=== PATIENT | female | born 2000 | race African-American/Black ===

== ENCOUNTER 2022-09-15 10:20 | Emergency (ER) | payer OTHER ==
[2022-09-15 10:29] VITALS: BP 129/85; BMI 32.2
[2022-09-15] MEDS ORDERED: LACTATED RINGERS SOLUTION 1000 ML INFUS.BAG IV ONE (10:55)
[2022-09-15] MEDS ORDERED: FAMOTIDINE 20 MG/50 ML IVPB 20 MG/50 ML MG IVPB ONE ×2 (10:55→11:04)
[2022-09-15] MEDS ORDERED: MAG HYDROX/AL HYDROX/SIMETH 30 ML UNIT-DOSE CUP PO ONE (10:56)
[2022-09-15] MEDS ORDERED: MAG HYDROX/AL HYDROX/SIMETH 30 ML UNIT-DOSE CUP ONE (11:05)
[2022-09-15 11:26] LABS: HEMATOCRIT 40.5 % (32.4-45.2); HEMOGLOBIN 13.7 G/dL (10.7-15.3); MCH 29.7 pg (25.7-33.7); MCHC 33.7 g/dl (32.0-36.0); MEAN CELL VOLUME 88.1 fl (80-96); MEAN PLT VOLUME 9.3 fl (7.5-11.1); PLATELET COUNT 207.9 10^3/uL (134-434); RDW 14.8 % (11.6-15.6); WHITE BLOOD COUNT 6.9 10^3/uL (4.0-10.8)
[2022-09-15 11:35] LABS: ALBUMIN 4.3 g/dl (3.4-5.0); BILIRUBIN,TOTAL 0.5 mg/dl (0.2-1); BLOOD UREA NITROGEN 11.6 mg/dl (7-18); CALCIUM 8.8 mg/dl (8.5-10.1); CREATININE 0.8 mg/dl (0.6-1.3); POTASSIUM 3.5 mmol/L (3.5-5.1); SGPT/ALT 7.9 U/L (7-52); TOT PROT 7.2 g/dl (6.4-8.2)
[2022-09-15 11:38] LABS: EPITHELIAL CELLS FEW /hpf
[2022-09-15 12:22] LABS: PLATELET ESTIMATE ADEQUATE
[2022-09-15] MEDS ORDERED: WATER FOR INJ,STERILE 10 ML ONE (12:51)
[2022-09-15 13:21] VITALS: PULSE 86; RESP 18; TEMP 98.2
== END 2022-09-15 13:35 | disposition home or self-care (01) ==
LOC: FER 10:20
PROC: 3E033GC Introduction of Other Therapeutic Substance into Peripheral Vein, Percutaneous Approach (ICD-10-PCS; principal; 2022-09-15)
DX: R10.84 Generalized abdominal pain (principal); R19.7 Diarrhea, unspecified
CPT/HCPCS: 36415; 80053; 81003; 81015; 83690; 84703; 85027; 99284-25

== ENCOUNTER 2023-02-26 18:34 | Emergency (ER) | payer OTHER ==
[2023-02-26 19:01] VITALS: BP 114/62; PULSE 74; RESP 16; TEMP 98.3; BMI 31.1
[2023-02-26 20:19] LABS: HEMATOCRIT 40.2 % (32.4-45.2); HEMOGLOBIN 12.7 G/dL (10.7-15.3); MCH 27.7 pg (25.7-33.7); MCHC 31.6 g/dl (32.0-36.0); MEAN CELL VOLUME 87.8 fl (80-96); MEAN PLT VOLUME 9.3 fl (7.5-11.1); PLATELET COUNT 234.8 10^3/uL (134-434); RBC 4.58 10^6/uL (3.60-5.2); RDW 15.8 % (11.6-15.6); WHITE BLOOD COUNT 5.1 10^3/uL (4.0-10.8)
[2023-02-26 20:25] LABS: HCG,QUALITATIVE URINE Negative
[2023-02-26 20:34] LABS: PLATELET ESTIMATE ADEQUATE
[2023-02-26] MEDS ORDERED: predniSONE 20 MG TABLET (UD) PO ONE (20:40)
[2023-02-26 20:41] LABS: ALBUMIN 4.5 g/dl (3.4-5.0); BILIRUBIN,TOTAL 0.4 mg/dl (0.2-1); CALCIUM 9.5 mg/dl (8.5-10.1); CREATININE 0.7 mg/dl (0.6-1.3); POTASSIUM 3.7 mmol/L (3.5-5.1); TOT PROT 7.4 g/dl (6.4-8.2)
[2023-02-26] MEDS ORDERED: valACYclovir HCL 500 MG TABLET (FP) PO ONE (20:41)
[2023-02-26] MEDS ORDERED: valACYclovir HCL 500 MG TABLET (FP) ONE (20:46)
[2023-02-26] MEDS ORDERED: predniSONE 20 MG TABLET (UD) ONE (20:46)
[2023-02-26] MEDS ORDERED: ERYTHROMYCIN 0.5% OPHTHALMIC OINTMENT 3.5 GM TUBE ONE (21:37)
[2023-02-27] MEDS ORDERED: ERYTHROMYCIN 0.5% OPHTHALMIC OINTMENT 3.5 GM TUBE OD SCH (10:00)
== END 2023-02-26 21:57 | disposition home or self-care (01) ==
LOC: FER 18:34
DX: G51.0 Bell's palsy (principal)
CPT/HCPCS: 36415; 80053; 81003; 84703; 85027; 85651; 99283-25